=== PATIENT | female | born 1965 | race Two or more races ===

== ENCOUNTER 2017-08-12 20:16 | Emergency (ER) | payer OTHER ==
[~2017-08-12] VITALS: Ht 157.5 cm; Wt 54.4 kg
[~2017-08-12 20:16] MED LIST: ATACAND16 MG
[2017-08-12] MEDS ORDERED: KETOROLAC TROME10 MG PO (22:55)
== END 2017-08-12 23:02 | disposition home or self-care (01) ==
LOC: ER 20:16
DX: S01.122A Laceration with foreign body of left eyelid and periocular area, initial encounter (principal); W45.8XXA Other foreign body or object entering through skin, initial encounter; Y93.89 Activity, other specified; Y92.89 Other specified places as the place of occurrence of the external cause; Y99.8 Other external cause status

== ENCOUNTER 2020-10-06 08:53 | Outpatient (CLI) | payer OTHER ==
[~2020-10-06 08:53] MED LIST changes: +KETOROLAC TROME10 MG PO
== END 2020-10-06 09:19 ==
LOC: MAMO-SONO 08:53
DX: Z12.31 Encounter for screening mammogram for malignant neoplasm of breast (principal); N64.59 Other signs and symptoms in breast